=== PATIENT | male | born 1945 | race Caucasian/White ===

== ENCOUNTER → 2018-11-25 | Outpatient (CLI) | payer MEDICARE ==
--- NOTE | 2018-11-25 14:50 | MR ---
EXAMINATION TYPE: MR brain wo con DATE OF EXAM: 11/25/2018 COMPARISON: None HISTORY: ataxic gait CONTRAST: Performed utilizing 0 mL intravenous Gadavist gadolinium contrast. TECHNIQUE: Multiplanar, multiecho imaging on a 3.0 Radha magnet is performed through the brain. Stud y is performed within 24 hours of arrival to the hospital. The craniovertebral junction is normal. The pituitary is normal. Diffusion-weighted imaging is performed. No abnormal hyperintensity is present to suggest an acute i ntracranial infarct or acute ischemic change. There are multiple scattered subcortical white matter changes present bilaterally. Findings are nonsp ecific but could include microvascular ischemic change within the differential. Ventricles and sulci are mildly prominent for the patient age. IMPRESSIONS: 1. Scattered punctate deep white matter changes may be related to microvascular ischemic change and m ild prominence of ventricles and sulci compatible some age-related atrophy
== END | disposition home or self-care (01) ==
LOC: RADMRIMAIN 09:49
PROVIDERS: ATTEND Psychiatry & Neurology Neurology
DX: R90.89 Other abnormal findings on diagnostic imaging of central nervous system (principal); R26.0 Ataxic gait; R20.2 Paresthesia of skin
CPT/HCPCS: 70551